=== PATIENT | male | born 1935 | race Caucasian/White ===

== ENCOUNTER 2024-03-19 06:00 | Day surgery (SDC) | payer OTHER ==
[~2024-03-19] VITALS: Ht 170.2 cm; Wt 69.9 kg
[2024-03-19] MEDS ORDERED: CEFAZOLIN SOD 2 GM in D5W 50 ML IV ONE (07:00)
[2024-03-19] MEDS ORDERED: fentaNYL CITRATE/PF 100 MCG/2 ML AMP ONE (07:30)
[2024-03-19] MEDS ORDERED: ONDANSETRON HCL 4 MG/2 ML VIAL ONE (07:30)
[2024-03-19] MEDS ORDERED: NS IRRIG SOLN 1000 ML IR ONE (07:30)
[2024-03-19] MEDS ORDERED: DEXAMETHASONE SOD PHOSPHATE 4 MG/ML VIAL ONE (07:30)
[2024-03-19] MEDS ORDERED: MIDAZOLAM HCL 2 MG/2 ML VIAL (VERSED) ONE (07:30)
[2024-03-19] MEDS ORDERED: NS 1000 ML IV.SOLN IV ONE (07:30)
[2024-03-19] MEDS ORDERED: GLYCOPYRROLATE 0.2 MG/ML VIAL ONE (07:30)
[2024-03-19] MEDS ORDERED: BUPIVACAINE /PF 0.25% 30 ML VIAL INJ ONE (07:30)
[2024-03-19] MEDS ORDERED: LIDOCAINE MPF 2% 20 MG/1 ML, 5 ML VIAL INH ONE (07:30)
[2024-03-19] MEDS ORDERED: SEVOFLURANE 15 MIN GAS INH ONE (07:30)
[2024-03-19] MEDS ORDERED: PROPOFOL 200MG/ 20ML VIAL (DIPRIVAN) IV ONE (07:30)
[2024-03-19 07:40] VITALS: O2SAT 100
[2024-03-19] MEDS ORDERED: ACETAMINOPHEN I.V. 1000 MG 100 ML IV ONE (07:59)
[2024-03-19] MEDS ORDERED: MEPERIDINE HCL/PF 25 MG/ML DISP.SYRIN IVP PRN (08:00)
[2024-03-19] MEDS ORDERED: ONDANSETRON HCL 4 MG/2 ML VIAL IVP PRN (08:00)
[2024-03-19] MEDS ORDERED: LR 1,000 ML IV SCH (08:00)
[2024-03-19] MEDS ORDERED: HYDROcodone/ACETAMIN 5-325 MG TAB (NORCO/ VICODIN) PO PRN (08:45)
[2024-03-19] MEDS ORDERED: D5/0.45 NS 1,000 ML IV SCH (08:45)
[2024-03-19] MEDS ORDERED: hydrALAZINE HCL 20 MG/ML VIAL ONE (09:10)
[2024-03-19] MEDS: hydrALAZINE HCL 20 MG/ML VIAL IVP PRN (09:10)
[2024-03-19] MEDS: HYDROmorphone 1 MG/ML INJ. CARTRIDGE IVP PRN ×2 (09:25→09:35)
[2024-03-19] MEDS ORDERED: HYDROmorphone 1 MG/ML INJ. CARTRIDGE ONE (09:31)
[2024-03-19 13:18] VITALS: BP_SYST 147; PULSE 53; RESP 17
== END 2024-03-19 11:46 | disposition home or self-care (01) ==
LOC: SDS 06:00 → SMU 06:00 → SDS 11:46
PROVIDERS: ATTEND Colon & Rectal Surgery
DX: K40.90 Unilateral inguinal hernia, without obstruction or gangrene, not specified as recurrent (principal); D17.6 Benign lipomatous neoplasm of spermatic cord; I12.9 Hypertensive chronic kidney disease with stage 1 through stage 4 chronic kidney disease, or unspecified chronic kidney disease; N18.30 Chronic kidney disease, stage 3 unspecified; E78.5 Hyperlipidemia, unspecified; Z96.1 Presence of intraocular lens; Z86.010 Personal history of colon polyps; Z98.52 Vasectomy status; Z90.79 Acquired absence of other genital organ(s); Z98.890 Other specified postprocedural states; Z79.899 Other long term (current) drug therapy; Z80.42 Family history of malignant neoplasm of prostate; Z82.0 Family history of epilepsy and other diseases of the nervous system; Z83.3 Family history of diabetes mellitus
CPT/HCPCS: 87081; 49525; C1781; J3490 ×2; J0690; J1100; J0360; J3465; J2405; J2704; J3010; J1170; J7060; J7030; J0131